=== PATIENT | male | born 1940 | race Caucasian/White ===

== ENCOUNTER 2018-03-30 23:51 | Emergency (ER) | payer OTHER, BC ==
[2018-03-31 01:20] VITALS: BP 131/58
== END 2018-03-31 01:20 | disposition home or self-care (01) ==
LOC: ED 23:51
DX: R10.30 Lower abdominal pain, unspecified (principal); R33.9 Retention of urine, unspecified; I10 Essential (primary) hypertension; E78.00 Pure hypercholesterolemia, unspecified

== ENCOUNTER 2019-12-22 06:42 | Day surgery (SDC) | payer OTHER, BC ==
[2019-12-16 10:53] LABS: BASOPHIL % 0.6 % (0-2); PLATELET COUNT 268 x10^3mcL (130-400)
[2019-12-16 11:01] LABS: RED CELL DISTRIBUTION WIDTH 15.5 % (11.5-14.5)
[2019-12-16 11:02] LABS: CALCIUM 8.6 mg/dL (8.5-10.1); CHLORIDE SERUM 103 mmol/L (98-107); CREATININE SERUM 1.3 mg/dL (0.7-1.3); GLUCOSE SERUM 95 mg/dL (74-106); POTASSIUM SERUM 4.1 mmol/L (3.5-5.1); SODIUM SERUM 138 mmol/L (136-145)
[2019-12-16 11:31] LABS: microscopic required? YES; urine erythrocyte TRACE (NEGATIVE)
--- NOTE | 2019-12-16 17:30 | NUR ---
NOTED EKG READING ON REPORT. CALL TO DR AGUAYO, DR GAN MUFF WINDER. SPOKE WITH DR GAN. EKG READING REVIEWED. HE ENCOURAGED PT TO GO TO URGENT CARE OR ER FOR EVALUATION. CALL TO PATIENT. PT DENIES CHEST PAIN OR SOB. REPORTS "SEEN BY DR NIEVES ON Friday12-13-19 AND AN EKG WAS DONE, NOTHING TO WORRY ABOUT. I DONT HAVE ANY CHEST PAIN OR PROBLEMS." REVIEWED DR GAN'S RECOMMENDATION. PT VERBALIZED UNDERSTANDING.
--- NOTE | 2019-12-16 18:05 | NUR ---
PAGE TO DR NIEVES.
--- NOTE | 2019-12-16 18:20 | NUR ---
SPOKE WITH DR NIEVES. REVIEWED PT STATUS, EKG REPORT. EKG FAXED TO BOTH HIS FAX NUMBERS [phone] AND [phone]. DR NIEVES REPORTS "WILL REVIEW AND CALL PATIENT AND DR AGUAYO."
--- NOTE | 2019-12-16 18:40 | NUR ---
FAX TO DR NIEVES CONFIRMED.
--- NOTE | 2019-12-17 11:15 | NUR ---
EKG AND LAB TESTS SENT TO [facility] FOR REVIEW. EKG AND LAB TESTS OKAY FOR SURGERY ON 12-22-[address] Keshia GERMAN.
[~2019-12-22] VITALS: Ht 177.8 cm; Wt 78.9 kg
[2019-12-22 07:07] VITALS: BP 161/68
[2019-12-22 15:04] VITALS: BP 150/72
== END 2019-12-22 13:50 | disposition home or self-care (01) ==
LOC: DS 06:42 → OR 06:42 → DS 13:50
PROVIDERS: ATTEND Urology
DX: N21.0 Calculus in bladder (principal); I12.9 Hypertensive chronic kidney disease with stage 1 through stage 4 chronic kidney disease, or unspecified chronic kidney disease; N18.3 Chronic kidney disease, stage 3 (moderate); I25.10 Atherosclerotic heart disease of native coronary artery without angina pectoris; K21.9 Gastro-esophageal reflux disease without esophagitis; N40.0 Benign prostatic hyperplasia without lower urinary tract symptoms; D64.9 Anemia, unspecified; E03.9 Hypothyroidism, unspecified; Z11.59 Encounter for screening for other viral diseases; Z79.899 Other long term (current) drug therapy; Z80.42 Family history of malignant neoplasm of prostate; Z95.1 Presence of aortocoronary bypass graft; Z98.890 Other specified postprocedural states
CPT/HCPCS: J0690; J2405; J2704; J2710; J3010; J3490; J7030; Q9967; U0003-CS

== ENCOUNTER 2019-12-23 17:41 | Emergency (ER) | payer OTHER, BC ==
[~2019-12-23] VITALS: Ht 170.2 cm; Wt 73.9 kg
[2019-12-23 17:47] VITALS: BP 135/79; Ht 170.2 cm; Wt 73.9 kg
== END 2019-12-23 19:21 | disposition home or self-care (01) ==
LOC: ED 17:41
DX: Z46.6 Encounter for fitting and adjustment of urinary device (principal); I10 Essential (primary) hypertension; E78.00 Pure hypercholesterolemia, unspecified